=== PATIENT | male | born 1985 | race Caucasian/White ===

== ENCOUNTER 2020-04-01 08:47 | Outpatient (CLI) | payer OTHER, SELFPAY ==
--- NOTE | ~2020-04-01 | XR_ITS ---
XR lumbar spine 2-3V DATE: 04/01/2020 09:05 INDICATION: Left low back pain; lifting injury. Recent L5-S1 microdiscectomy, October 2019 TECHNIQUE: AP, lateral, coned lateral lumbosacral views COMPARISON: None FINDINGS: There is mild dextroscoliosis of the lumbar spine. No fracture or bone destruction or spondylolisthesis. The included lower thoracic and lumbar pedicles are intact. Lumbar and lumbosacral interspaces are well preserved. The sacroiliac joints are intact. IMPRESSION: Mild dextroscoliosis of the lumbar spine Reviewed, dictated and finalized at location A.
== END 2020-04-01 08:48 | disposition home or self-care (01) ==
PROVIDERS: PCP Internal Medicine; Visit Provider Neurological Surgery
DX: Z48.89 Encounter for other specified surgical aftercare (principal); M54.5 Low back pain
CPT/HCPCS: 72100

== ENCOUNTER 2021-03-12 16:16 | Emergency (ER) | payer OTHER, SELFPAY ==
--- NOTE | ~2021-03-12 | XR_ITS ---
EXAMINATION: XR chest 2V DATE: 03/12/2021 17:08 INDICATION: Productive cough for . Smoker. TECHNIQUE: PA and lateral views of the chest were obtained. COMPARISON: None FINDINGS: The lungs are clear with no focal airspace opacities, pulmonary edema, pleural effusion or pneumothor ax. The cardiomediastinal silhouette is normal. Chronic minimal anterior wedging at T11-L1. IMPRESSION: 1. No acute cardiopulmonary disease. Reviewed, dictated and finalized at location A.
[2021-03-12 16:20] VITALS: BP 118/78; PULSE 83; RESP 17; TEMP 36.9; O2SAT 99
--- NOTE | 2021-03-12 16:35 | ED.URI ---
HPI - URI/Sore Throat General Chief Complaint: Upper Respiratory Infection Stated Complaint: pneumonia Time Seen by Provider: 03/12/21 16:35 Source: patient Mode of arrival: ambulatory Limitations: no limitations History of Present Illness HPI Narrative: Wilver Pérez is a 35yo male with no PMH except tobacco abuse who comes to urgent care for evaluation for pneumonia. Since his cough and occasionally has some congestion he has had no fever has no history other than having had pneumonia in the past. He will not allowed to be tested for Covid or any other screening. Chest x-ray will be ordered Related Data Allergies Allergy/AdvReac Type Severity Reaction Status Date / Time NO KNOWN DRUG ALLERGIES Allergy Y Uncoded 03/12/21 16:24 (Class Allergy) Review of Systems Review of Systems: Narrative: CONSTITUTIONAL: Denies fever, chills, sweats. EYES: Denies visual changes, redness, discharge. ENT: Denies rhinorrhea, has congestion, sore throat, otalgia. CARDIOVASCULAR: Denies chest pain, palpitations, edema. RESPIRATORY: Denies dyspnea, wheezing, has cough GASTROINTESTINAL: Denies abdominal pain, nausea, vomiting, diarrhea. GENITOURINARY: Denies dysuria, hematuria, abnormal discharge SKIN: Denies rash or itching. NEUROLOGIC: Denies numbness, or focal weakness. PSYCHIATRIC: Denies anxiety or depression. PMFSH Past Medical History Medical History No acute medical problems Family History Family History Other No acute medical problems Social History Social History (Updated 03/12/21 @ 17:12 by Mattie Arce CNP) Smoking status: Current every day smoker Alcohol intake: current Gender identity (if verbalized by the patient): Male Comments At time of signature, I agree with nursing past medical, surgical, social and family history. There is no relevant family history pertinent to the presenting complaint. Exam Narrative: Exam Narrative: GENERAL: This is a well-nourished, well-developed patient, in no distress. HEAD: normocephalic, atraumatic. EYES: Sclera clear/white. Vision is grossly intact. EARS: External ears normal, auditory canals erythema and without drainage, TMs normal with fluid behind eardrum. Hearing grossly intact. NOSE: External nose normal without nasal discharge, nares without redness, no rhinorrhea. THROAT: Mucous membranes moist, mild erythema posterior pharynx NECK: Neck supple, non-tender CARDIOVASCULAR: Regular rate and rhythm without murmurs, gallops, or rubs. RESPIRATORY: Clear to auscultation. Breath sounds equal bilaterally. No wheezes, rales, or rhonchi. GASTROINTESTINAL: Abdomen soft, SKIN: warm, intact with no suspicious lesions or rash, good texture and turgor. NEURO: awake, alert, and oriented to person, place and time. There were no obvious focal neurologic abnormalities. Steady gait EXTREMITIES: Normal range of motion. BACK: Nontender without deformity Course Course Emergency Course: Patient here for evaluation of congestion and cough with no fever are other symptoms He wants a chest x-ray; not agreed any swabbing Chest x-ray done-no acute cardiopulmonary disease lungs are clear with no focal airspace opacities pulmonary edema pleural effusion or pneumothorax the cardiomediastinal silhouette is normal chronic minimal wedging T11-L1 Started on zyrtec and decongestant-given PCP referral list Vital Signs Vital signs: Vital Signs Temperature 98.5 F 03/12/21 16:20 Pulse Rate 83 03/12/21 16:20 Respiratory Rate 17 03/12/21 16:20 Blood Pressure 118/78 03/12/21 16:20 Pulse Oximetry 99 03/12/21 16:20 Temperature 98.5 F 03/12/21 16:20 Pulse Rate 83 03/12/21 16:20 Respiratory Rate 17 03/12/21 16:20 Blood Pressure 118/78 03/12/21 16:20 Pulse Oximetry 99 03/12/21 16:20 MDM - URI/Sore Throat Differential Diagnosis Differential diagno
== END 2021-03-12 17:37 | disposition home or self-care (01) ==
PROVIDERS: Emergency Provider Nurse Practitioner; PCP Internal Medicine
DX: J06.9 Acute upper respiratory infection, unspecified (principal); F17.200 Nicotine dependence, unspecified, uncomplicated
CPT/HCPCS: 71046; 99213; G0463

== ENCOUNTER 2023-03-14 15:21 | Emergency (ER) | payer OTHER, SELFPAY ==
--- NOTE | ~2023-03-14 | XR_ITS ---
XR shoulder RT min 2V 03/14/2023 15:47 INDICATION: Right shoulder pain PROCEDURE: 4 views right shoulder COMPARISON: No prior studies for comparison. FINDINGS: Fracture, dislocation or subluxation is not identified. The soft tissues appear within norm al limits. No foreign bodies are identified. IMPRESSION: 1: NO ACUTE BONE OR JOINT ABNORMALITY IDENTIFIED. Reviewed, dictated and finalized at location A.
[2023-03-14 15:34] VITALS: BP 121/75; PULSE 71; RESP 16; TEMP 36.7; O2SAT 97
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
== END 2023-03-14 17:12 | disposition home or self-care (01) ==
PROVIDERS: Emergency Provider Registered Nurse; PCP Physician Assistant Medical
DX: M25.511 Pain in right shoulder (principal); F17.210 Nicotine dependence, cigarettes, uncomplicated
CPT/HCPCS: 73030; 99213; G0463

== ENCOUNTER → 2023-08-12 16:05 | Outpatient (CLI) | payer OTHER, SELFPAY ==
--- NOTE | ~2023-08-12 | MR_ITS ---
EXAMINATION: MR shoulder RT wo con DATE: 08/12/2023 16:35 INDICATION: Right shoulder pain TECHNIQUE: Magnetic resonance imaging (MRI) of the right shoulder was performed without intravenous c ontrast. Sequences included axial PD-weighted FS FSE, coronal oblique PD-weighted FS FSE, coronal obl ique T2-weighted FS FSE, sagittal PD-weighted FS FSE, and sagittal T1-weighted SE. COMPARISON: None. FINDINGS: Coracoacromial arch: The acromion undersurface is curved in morphology (type II). The coracoacromial ligament is normal. A cromioclavicular joint is normal. Rotator cuff: Mild supraspinatus and subscapularis tendinopathy without tear. The subscapularis teres minor tendons are normal. Normal rotator cuff muscle bulk and signal. Biceps tendon, glenoid labrum and glenohumeral cartilage: Long head of the biceps tendon is normal. Glenoid labrum is normal. Glenohumeral cartilage is normal. Fluid: Physiologic amount of fluid in the glenohumeral joint and biceps tendon sheath. No loose osteochondr al bodies. Minimal amount of fluid in the subacromial/subdeltoid bursa consistent with very mild burs itis. Bones: Normal marrow signal with no edema, fracture or abnormal marrow replacing process. IMPRESSION: 1. Mild supraspinatus and subscapularis tendinopathy without tear. 2. Very mild subacromial/subdeltoid bursitis. Reviewed, dictated and finalized at location A. [facility]NAL DIRECTOR OF ADMISSIONS
== END ==
DX: M75.51 Bursitis of right shoulder (principal); M67.813 Other specified disorders of tendon, right shoulder
CPT/HCPCS: 73221